=== PATIENT | female | born 1990 | race Caucasian/White ===

== ENCOUNTER 2022-10-14 18:29 | Emergency (ER) | payer BC ==
[2022-10-14 19:02] VITALS: TEMP 98
[2022-10-14] MEDS ORDERED: SODIUM CHLORIDE 0.9% 2,000 ML IV STA (21:13)
[2022-10-14] MEDS ORDERED: ACETAMINOPHEN IV (For NPO) 1,000 MG in EMPTY BAG 1 BAG IVPB STA (21:13)
[2022-10-14] MEDS ORDERED: CAFFEINE-SODIUM BENZOATE 300 MG in SODIUM CHLORIDE 0.9% 1,000 ML IVPB ONE (21:14)
[2022-10-14] MEDS ORDERED: METOCLOPRAMIDE 5 MG/ML 2 ML VIAL IVP STA (21:18)
[2022-10-14] MEDS ORDERED: diphenhydrAMINE 50 MG/ML 1 ML VIAL IVP STA (21:18)
--- NOTE | 2022-10-14 21:35 | ED ---
Headache HPI - General Chief Complaint: Headache Stated Complaint: Migraine, 5 Weeks preg Time Seen by Provider: 10/14/22 21:09 Source: patient, RN notes reviewed Mode of arrival: ambulatory Limitations: no limitations - History of Present Illness Initial Comments: This is a 32-year-old female who presents to the emergency department for a headache. Patient states that this started about a week ago. Describes this as being in the front of her head, behind the eyes, and in the neck. She is 5 weeks and . She has an upcoming appointment with [facility] LABORATORY SPECIALIST, but has not yet seen them. She did start to feel nauseous today. She has taken Tylenol with no relief in symptoms. Reports associated photophobia. Denies any history of headaches or migraines. Denies any fevers, chills, sore throat, cough, dyspnea, chest pain, palpitati ons, abdominal pain, vomiting, or diarrhea. MD Complaint: headache - Related Data Home Medications Medication Instructions Recorded Confirmed No Known Home Medications 08/26/13 08/26/13 Allergies Allergy/AdvReac Type Severity Reaction Status Date / Time No Known Allergies Allergy Verified 10/14/22 19:02 Review of Systems ROS Statement: Those systems with pertinent positive or pertinent negative responses have been documented in the HPI. ROS Other: All systems not noted in ROS Statement are negative. Past Medical History Past Medical History: COPD Additional Past Medical History / Comment(s): SWOLLEN TONSILS, CHRONIC SORE THROATS. HX OF BRONCHITIS. IUD. History of Any Multi-Drug Resistant Organisms: None Reported Past Surgical History: No Surgical Hx Reported Additional Past Anesthesia/Blood Transfusion Reaction / Comment(s): FIRST SURGERY Past Psychological History: No Psychological Hx Reported Smoking Status: Never smoker Past Alcohol Use History: Occasional Past Drug Use History: None Reported General Exam Limitations: no limitations General appearance: alert, in no apparent distress Head exam: Present: atraumatic, normocephalic, normal inspection Eye exam: Present: normal appearance, PERRL, EOMI. Absent: scleral icterus, conjunctival injection, periorbital swelling Respiratory exam: Present: normal lung sounds bilaterally. Absent: respiratory distress, wheezes, rales, rhonchi, stridor Cardiovascular Exam: Present: regular rate, normal rhythm, normal heart sounds. Absent: systolic murmur, diastolic murmur, rubs, gallop, clicks Neurological exam: Present: alert, oriented X3, CN II-XII intact Psychiatric exam: Present: normal affect, normal mood Skin exam: Present: warm, dry, intact, normal color. Absent: rash Course Vital Signs 10/14/22 10/14/22 19:00 23:28 Temperature 98 F Pulse Rate 92 88 Respiratory 18 20 Rate Blood Pressure 152/78 149/81 O2 Sat by Pulse 98 99 Oximetry Medical Decision Making - Medical Decision Making This is a 32-year-old female who presents to the emergency department for a headache. Was pt. sent in by a medical professional or institution? @ -No Did you speak to anyone other than the patient for history? @ -No Did you review nursing and triage notes? @ -Yes, and I agree, it is accurate with regards to the patient's symptoms. Were old charts reviewed? @ -No Differential Diagnosis? @ -Differential Headache: Migraine, tension, cluster, carbon monoxide, central venous thrombosis, pension karma temporal arteritis, acute closure glaucoma, intercranial hemorrhage, mastoiditis, sinusitis, head injury, this is not meant to be an all-inclusive list. EKG interpreted by me (3pts min.)? @ -Not obtained X-rays interpreted by me (1pt min.)? @ -Not obtained CT interpreted by me (1pt min.)? @ -Not obtained U/S interpreted by me (1pt. min.)? @ -Not obtained What testing was considered but not performed? (CT, X-rays, U/S, labs)? Why? @ -None What meds were considered but not given? Why? @ -None Did you discuss the management of the patient with other professionals? @ -No Did you reconcile home meds? @ -No Was smoking cessation discussed for >3mins.? @ -No Was critical care preformed (if so, how long)? @ -No Were there social determinants of health that impacted care today? How? (Homelessness, low income, unemployed, alcoholism, drug addiction, transport ation, low edu. Level, literacy, decrease access to med. care, senior living, rehab)? @ -No Was there de-escalation of care discussed even if they declined? (Discuss DNR or withdrawal of care, Hospice)? @ -No What co-morbidities impacted this encounter? (DM, HTN, Smoking, COPD, CAD, Cancer, CVA, Hep., AIDS, mental health diagnosis, sleep apnea, morbid obesity)? @ - Was patient admitted / discharged? @ -Discharged. Lab work obtained revealing mild leukocytosis and was otherwise nonactionable. Covid, influenza, and RSV testing were negative. Urinalysis negative for signs of infection. She did have mildly elevated blood pressure, however she did not have protein in her urine and did not meet criteria for preeclampsia. Additionally, the patient was in a lot of pain and becoming agitated with one of her nurses for not being very efficient, all likely con tributing to her blood pressure. Advised that she will need to have close follow-up with this with her MEDICAL LABORATORY SPECIALIST. Her headache was well controlled with IV fluids, Ofirmev, Benadryl, and caffeine, and the patient felt stable for discharge home. Advised that she can continue with a combination of Tylenol, Benadryl, and caffeine at home for further management of headaches. She is instructed to avoid consuming more than 300 mg of caffeine daily in . She is also reminded to avoid taking any [id number]-syc-[id number] anti-inflammatories such as ibuprofen in . Undiagnosed new problem with uncertain prognosis? @ -None Drug Therapy requiring intensive monitoring for toxicity (Heparin, Nitro, Insulin, Cardizem)? @ -None Were any procedures done? @ -None Diagnosis/symptom? @ -Headache Acute, or Chronic, or Acute on Chronic? @ -Acute Uncomplicated (without systemic symptoms) or Complicated (systemic symptoms)? @ -Uncomplicated Side effects of treatment? @ -None Exacerbation, Progression, or Severe Exacerbation] @ -Not applicable Poses a threat to life or bodily function? @ -No Return precautions reviewed in depth, the patient is instructed to return to the emergency department with any new, worsening, or concerning symptoms. Patient verbalized understanding. This case was discussed in detail with the attending ED physician, Dr. Patton. Presentation, findings, and treatment plan discussed in detail as well. - Lab Data Result diagrams: 10/14/22 21:42 10/14/22 21:42 Lab Results 10/14/22 10/14/22 10/14/22 Range/Units 00:00 21:42 21:42 WBC 11.8 H (3.8-10.6) k/uL RBC 4.75 (3.80-5.40) m/uL Hgb 14.8 (11.4-16.0) gm/dL Hct 43.6 (34.0-46.0) % MCV 91.6 (80.0-100.0) fL MCH 31.1 (25.0-35.0) pg MCHC 33.9 (31.0-37.0) g/dL RDW 12.8 (11.5-15.5) % Plt Count 232 (150-450) k/uL MPV 8.4 Neutrophils % 76 % Lymphocytes % 16 % Monocytes % 6 % Eosinophils % 1 % Basophils % 0 % Neutrophils # 9.0 H (1.3-7.7) k/uL Lymphocytes # 1.9 (1.0-4.8) k/uL Monocytes # 0.7 (0-1.0) k/uL Eosinophils # 0.1 (0-0.7) k/uL Basophils # 0.0 (0-0.2) k/uL Sodium 136 L (137-145) mmol/L Potassium 3.5 (3.5-5.1) mmol/L Chloride 106 (98-107) mmol/L Carbon Dioxide 21 L (22-30) mmol/L Anion Gap 9 mmol/L BUN 8 (7-17) mg/dL Creatinine 0.62 (0.52-1.04) mg/dL Est GFR (CKD-EPI)AfAm >90 (>60 ml/min/1.73 sqM) Est GFR (CKD-EPI)NonAf >90 (>60 ml/min/1.73 sqM) Glucose 105 H (74-99) mg/dL Calcium 9.0 (8.4-10.2) mg/dL Total Bilirubin 1.0 (0.2-1.3) mg/dL AST 24 (14-36) U/L ALT 33 (4-34) U/L Alkaline Phosphatase 44 (38-126) U/L Total Protein 7.0 (6.3-8.2) g/dL Albumin 4.2 (3.5-5.0) g/dL HCG, Quant 4823.1 mIU/mL Urine Color Colorless Urine Appearance Clear (Clear) Urine pH 5.5 (5.0-8.0) Ur Specific [place] 1.004 (1.001-1.035) Urine Protein Negative (Negative) Urine Glucose (UA) Negative (Negative) Urine Ketones Negative (Negative) Urine Blood Negative (Negative) Urine Nitrite Negative (Negative) Urine Bilirubin Negative (Negative) Urine Urobilinogen 0.2 (<2.0) mg/dL Ur Leukocyte Esterase Negative (Negative) Influenza Type A (PCR) (Not Detectd) Influenza Type B (PCR) (Not Detectd) RSV (PCR) (Not Detectd) SARS-CoV-2 (PCR) (Not Detectd) 10/14/22 Range/Units 21:42 WBC (3.8-10.6) k/uL RBC (3.80-5.40) m/uL Hgb (11.4-16.0) gm/dL Hct (34.0-46.0) % MCV (80.0-100.0) fL MCH (25.0-35.0) pg MCHC (31.0-37.0) g/dL RDW (11.5-15.5) % Plt Count (150-450) k/uL MPV Neutrophils % % Lymphocytes % % Monocytes % % Eosinophils % % Basophils % % Neutrophils # (1.3-7.7) k/uL Lymphocytes # (1.0-4.8) k/uL Monocytes # (0-1.0) k/uL Eosinophils # (0-0.7) k/uL Basophils # (0-0.2) k/uL Sodium (137-145) mmol/L Potassium (3.5-5.1) mmol/L Chloride (98-107) mmol/L Carbon Dioxide (22-30) mmol/L Anion Gap mmol/L BUN (7-17) mg/dL Creatinine (0.52-1.04) mg/dL Est GFR (CKD-EPI)AfAm (>60 ml/min/1.73 sqM) Est GFR (CKD-EPI)NonAf (>60 ml/min/1.73 sqM) Glucose (74-99) mg/dL Calcium (8.4-10.2) mg/dL Total Bilirubin (0.2-1.3) mg/dL AST (14-36) U/L ALT (4-34) U/L Alkaline Phosphatase (38-126) U/L Total Protein (6.3-8.2) g/dL Albumin (3.5-5.0) g/dL HCG, Quant mIU/mL Urine Color Urine Appearance (Clear) Urine pH (5.0-8.0) Ur Specific [place] (1.001-1.035) Urine Protein (Negative) Urine Glucose (UA) (Negative) Urine Ketones (Negative) Urine Blood (Negative) Urine Nitrite (Negative) Urine Bilirubin (Negative) Urine Urobilinogen (<2.0) mg/dL Ur Leukocyte Esterase (Negative) Influenza Type A (PCR) Not Detected (Not Detectd) Influenza Type B (PCR) Not Detected (Not Detectd) RSV (PCR) Not Detected (Not Detectd) SARS-CoV-2 (PCR) Not Detected (Not Detectd) Disposition Clinical Impression: Headache, Disposition: HOME SELF-CARE Instructions (If sedation given, give patient instructions): Acute Headache (ED) Additional Instructions: Return to the emergency department with any new, worsening, or concerning symptoms. If the headache returns, you can take [id number] Tylenol with caffeine and Benadryl. Limit your caffeine intake to 300 mg in . Make sure to avoid anti-inflammatories such as ibuprofen. Follow up with your [facility] LABOR[facility]ORY SPECIALIST as scheduled. Follow up with your primary care provider in 1-2 days. Is patient prescribed a controlled substance at d/c from ED?: No Referrals: None,Stated [REFERRING] - 1-2 days
[2022-10-14 22:35] LABS: ALT 33 U/L (4-34); AST 24 U/L (14-36); African American GFR (CKD) >90 (>60 ml/min/1.73 sqM); Albumin 4.2 g/dL (3.5-5.0); Alkaline Phosphatase 44 U/L (38-126); Anion Gap 9 mmol/L; Blood Urea Nitrogen 8 mg/dL (7-17); Carbon Dioxide 21 mmol/L (22-30); Chloride 106 mmol/L (98-107); Glucose 105 mg/dL (74-99); Non-African American GFR(CKD) >90 (>60 ml/min/1.73 sqM); Potassium 3.5 mmol/L (3.5-5.1); Sodium 136 mmol/L (137-145)
[2022-10-14 22:43] LABS: Basophils % (A) 0 %; Eosinophils # (A) 0.1 k/uL (0-0.7); Eosinophils % (A) 1 %; HCT 43.6 % (34.0-46.0); HGB 14.8 gm/dL (11.4-16.0); Lymphocytes # (A) 1.9 k/uL (1.0-4.8); Lymphocytes % (A) 16 %; MCH 31.1 pg (25.0-35.0); MCHC 33.9 g/dL (31.0-37.0); MCV 91.6 fL (80.0-100.0); Mean Platelet Volume 8.4; Monocytes # (A) 0.7 k/uL (0-1.0); Monocytes % (A) 6 %; Neutrophils % (A) 76 %; Platelet Count 232 k/uL (150-450); RBC 4.75 m/uL (3.80-5.40); RDW 12.8 % (11.5-15.5); WBC 11.8 k/uL (3.8-10.6)
[2022-10-14 22:51] LABS: HCG,Quantitative Serum 4823.1 mIU/mL
[2022-10-14 23:29] VITALS: BP 149/81; PULSE 88; RESP 20
[2022-10-15] MEDS ORDERED: ONDANSETRON 4 MG ODT STARTER PACK 2 TAB BTL PO STA (00:06)
[2022-10-15 00:59] LABS: Appearance,Urine Clear (Clear); Bilirubin,Urine Negative (Negative); Blood,Urine Negative (Negative); Color,Urine Colorless; Glucose,Urine (UA) Negative (Negative); Ketones,Urine Negative (Negative); Leukocyte Esterase,Urine Negative (Negative); Nitrite,Urine Negative (Negative); PH, Urine 5.5 (5.0-8.0); Protein,Urine Negative (Negative); Specific Gravity,Urine 1.004 (1.001-1.035); Urobilinogen,Urine 0.2 mg/dL (<2.0)
== END 2022-10-15 00:48 | disposition home or self-care (01) ==
LOC: EC 18:29
DX: O99.351 Diseases of the nervous system complicating pregnancy, first trimester (principal); R51.9 Headache, unspecified; O99.511 Diseases of the respiratory system complicating pregnancy, first trimester; J44.9 Chronic obstructive pulmonary disease, unspecified; Z20.822 Contact with and (suspected) exposure to COVID-19
CPT/HCPCS: 80053; 85025; 84702; 87636; 99284; 96365; 96367; 96375 ×2; 96361; J1200; J2765; J0131; 36415; 81003

== ENCOUNTER 2024-05-19 10:57 | Outpatient (CLI) | payer BC ==
[2024-05-19 12:40] LABS: Appearance,Urine Cloudy (Clear); Bacteria,Urine Many /hpf; Bilirubin,Urine Negative (Negative); Blood,Urine Negative (Negative); Color,Urine Light Yellow; Glucose,Urine (UA) Negative (Negative); Ketones,Urine 3+ (Negative); Leukocyte Esterase,Urine Negative (Negative); Mucus,Urine Occasional /hpf; Nitrite,Urine Negative (Negative); Protein,Urine Trace (Negative); RBC,Urine 1 /hpf (0-5); Squamous Epithelial Cell,Urine 3 /hpf (0-4); Urobilinogen,Urine <2.0 mg/dL (<2.0); WBC,Urine 7 /hpf (0-5)
[2024-05-19 12:41] LABS: Basophils % (A) 0 %; Eosinophils # (A) 0.1 k/uL (0-0.7); Eosinophils % (A) 1 %; HCT 40.7 % (34.0-46.0); HGB 12.9 gm/dL (11.4-16.0); Lymphocytes # (A) 1.4 k/uL (1.0-4.8); Lymphocytes % (A) 17 %; MCHC 31.6 g/dL (31.0-37.0); MCV 95.1 fL (80.0-100.0); Mean Platelet Volume 9.9; Monocytes # (A) 0.5 k/uL (0-1.0); Monocytes % (A) 7 %; Neutrophils # (A) 6.1 k/uL (1.3-7.7); Neutrophils % (A) 74 %; Platelet Count 170 k/uL (150-450); RBC 4.28 m/uL (3.80-5.40); RDW 13.2 % (11.5-15.5); WBC 8.3 k/uL (3.8-10.6)
[2024-05-19 13:01] LABS: ALT 16 U/L (4-34); AST 19 U/L (14-36); African American GFR (CKD) >90 (>60 ml/min/1.73 sqM); Blood Urea Nitrogen 12 mg/dL (7-17); LDH 194 U/L (120-246); Non-African American GFR(CKD) >90 (>60 ml/min/1.73 sqM); Uric Acid 4.2 mg/dL (3.7-7.4)
[2024-05-19 13:19] VITALS: BP 170/91; PULSE 89; RESP 18; TEMP 97.6
[2024-05-19 16:35] LABS: Creatinine,Urine Random 133.1 mg/dL; Protein/Creatinine Ratio,Urine 0.12
== END 2024-05-19 13:19 | disposition home or self-care (01) ==
LOC: FBPOP 10:57
PROVIDERS: ATTEND Obstetrics & Gynecology Obstetrics
DX: O24.419 Gestational diabetes mellitus in pregnancy, unspecified control (principal)
CPT/HCPCS: 59025; 81001; 82565; 82570; 83615; 84156; 84450; 84460; 84520; 84550; 85025; 99215

== ENCOUNTER 2024-06-03 10:23 | Outpatient (CLI) | payer BC ==
[2024-06-03 11:00] LABS: Basophils % (A) 0 %; Eosinophils # (A) 0.1 k/uL (0-0.7); Eosinophils % (A) 1 %; HCT 42.8 % (34.0-46.0); HGB 13.5 gm/dL (11.4-16.0); Lymphocytes # (A) 1.3 k/uL (1.0-4.8); Lymphocytes % (A) 16 %; MCH 30.2 pg (25.0-35.0); MCHC 31.6 g/dL (31.0-37.0); MCV 95.7 fL (80.0-100.0); Mean Platelet Volume 9.7; Monocytes # (A) 0.4 k/uL (0-1.0); Monocytes % (A) 5 %; Neutrophils # (A) 6.1 k/uL (1.3-7.7); Neutrophils % (A) 75 %; Platelet Count 188 k/uL (150-450); RBC 4.48 m/uL (3.80-5.40); RDW 13.5 % (11.5-15.5); WBC 8.1 k/uL (3.8-10.6)
[2024-06-03 11:07] LABS: Appearance,Urine Cloudy (Clear); Bacteria,Urine Few /hpf; Bilirubin,Urine Negative (Negative); Blood,Urine Negative (Negative); Color,Urine Colorless; Glucose,Urine (UA) Negative (Negative); Ketones,Urine Negative (Negative); Leukocyte Esterase,Urine Negative (Negative); Mucus,Urine Rare /hpf; Nitrite,Urine Negative (Negative); PH, Urine 6.5 (5.0-8.0); Protein,Urine Negative (Negative); Specific Gravity,Urine 1.014 (1.001-1.035); Squamous Epithelial Cell,Urine 3 /hpf (0-4); Urobilinogen,Urine <2.0 mg/dL (<2.0); WBC,Urine 3 /hpf (0-5)
[2024-06-03 11:20] LABS: Creatinine,Urine Random 63.8 mg/dL
[2024-06-03 12:24] LABS: Creatinine,Urine Random 63.8 mg/dL; Protein/Creatinine Ratio,Urine 0.188
[2024-06-03 12:59] VITALS: BP 142/93; PULSE 90; RESP 17; TEMP 96.6
== END 2024-06-03 12:53 | disposition home or self-care (01) ==
LOC: FBPOP 10:23
PROVIDERS: ATTEND Obstetrics & Gynecology Obstetrics
DX: O24.419 Gestational diabetes mellitus in pregnancy, unspecified control (principal); Z3A.00 Weeks of gestation of pregnancy not specified
CPT/HCPCS: 36415; 59025; 81001; 82570; 84156; 84450; 84460; 84550; 85025

== ENCOUNTER 2024-06-19 16:14 | Outpatient (CLI) | payer BC ==
[2024-06-19 17:16] LABS: Appearance,Urine Cloudy (Clear); Bacteria,Urine Many /hpf; Bilirubin,Urine Negative (Negative); Blood,Urine Negative (Negative); Color,Urine Colorless; Glucose,Urine (UA) Negative (Negative); Ketones,Urine Negative (Negative); Leukocyte Esterase,Urine Negative (Negative); Mucus,Urine Occasional /hpf; Nitrite,Urine Negative (Negative); Protein,Urine Trace (Negative); RBC,Urine 5 /hpf (0-5); Specific Gravity,Urine 1.018 (1.001-1.035); Squamous Epithelial Cell,Urine 4 /hpf (0-4); Urobilinogen,Urine <2.0 mg/dL (<2.0); WBC,Urine 21 /hpf (0-5)
[2024-06-19 17:24] LABS: Basophils % (A) 0 %; Eosinophils # (A) 0.3 k/uL (0-0.7); Eosinophils % (A) 3 %; HCT 42.2 % (34.0-46.0); HGB 13.6 gm/dL (11.4-16.0); Lymphocytes # (A) 1.4 k/uL (1.0-4.8); Lymphocytes % (A) 14 %; MCHC 32.1 g/dL (31.0-37.0); MCV 93.5 fL (80.0-100.0); Mean Platelet Volume 9.4; Monocytes # (A) 0.6 k/uL (0-1.0); Monocytes % (A) 6 %; Neutrophils # (A) 7.3 k/uL (1.3-7.7); Neutrophils % (A) 75 %; Platelet Count 186 k/uL (150-450); RBC 4.52 m/uL (3.80-5.40); RDW 13.2 % (11.5-15.5); WBC 9.7 k/uL (3.8-10.6)
[2024-06-19 18:18] LABS: ALT 16 U/L (4-34); AST 22 U/L (14-36); African American GFR (CKD) >90 (>60 ml/min/1.73 sqM); Blood Urea Nitrogen 18 mg/dL (7-17); Non-African American GFR(CKD) >90 (>60 ml/min/1.73 sqM); Uric Acid 4.4 mg/dL (3.7-7.4)
[2024-06-19] MEDS: ACETAMINOPHEN TAB 500 MG TAB PO STA (18:45)
[2024-06-19] MEDS: LABETALOL 100 MG TAB PO ONE (18:46)
[2024-06-19 20:39] VITALS: BP 171/91; PULSE 103; RESP 16; TEMP 97
== END 2024-06-19 20:00 ==
LOC: FBPOP 16:14
PROVIDERS: ATTEND Obstetrics & Gynecology Obstetrics
DX: O24.419 Gestational diabetes mellitus in pregnancy, unspecified control (principal); Z3A.00 Weeks of gestation of pregnancy not specified
CPT/HCPCS: 59025; 81001; 82565; 82570; 84156; 84450; 84460; 84520; 84550; 85025

== ENCOUNTER 2024-06-25 15:44 | Inpatient (IN) | payer BC ==
[2024-06-25] MEDS ORDERED: miSOPROStoL 200 MCG TAB PO PRN (16:18)
[2024-06-25] MEDS ORDERED: METHYLERGONOVINE 0.2 MG/ML 1 ML AMP IM PRN (16:18)
[2024-06-25] MEDS ORDERED: miSOPROStoL 200 MCG TAB RECTAL PRN (16:18)
[2024-06-25] MEDS ORDERED: OXYTOCIN 10 UNIT/ML 1 ML VIAL IM PRN (16:18)
[2024-06-25] MEDS ORDERED: LIDOCAINE 0.5% (PF) 5 MG/ML (50 ML SDV) SQ PRN (16:18)
[2024-06-25] MEDS ORDERED: CARBOPROST TROMETHAMINE 250 MCG/ML 1 ML AMP IM PRN (16:18)
[2024-06-25] MEDS ORDERED: TRANEXAMIC 1,000 MG/100ML-NACL 1,000 MG in EMPTY BAG 1 BAG IV PRN (16:18)
[2024-06-25] MEDS ORDERED: TERBUTALINE 1 MG/ML VIAL SQ PRN (16:18)
[2024-06-25] MEDS ORDERED: NALBUPHINE 10 MG/ML (10 ML MDV) IV PRN (16:20)
[2024-06-25] MEDS: PRENATAL VIT-IRON-FOLIC ACID 1 EACH TABLET PO ONE (16:43)
[2024-06-25] MEDS: LACTATED RINGERS 1,000 ML IV SCH (16:44)
[2024-06-25 16:47] LABS: Basophils # (A) 0.02 10*3/uL (0.00-0.10); Basophils % (A) 0.2 %; Eosinophils # (A) 0.26 10*3/uL (0.04-0.35); Eosinophils % (A) 3.2 %; HCT 40.2 % (37.2-46.3); HGB 13.8 g/dL (12.0-15.0); Lymphocytes # (A) 1.23 10*3/uL (0.90-5.00); Lymphocytes % (A) 14.9 %; MCH 31.7 pg (27.0-32.0); MCHC 34.3 g/dL (32.0-37.0); MCV 92.4 fL (80.0-97.0); Mean Platelet Volume 11.4 fL (9.5-12.2); Monocytes # (A) 0.62 10*3/uL (0.20-1.00); Monocytes % (A) 7.5 %; Neutrophils # (A) 6.07 10*3/uL (1.80-7.70); Neutrophils % (A) 73.7 %; Platelet Count 201 10*3/uL (140-440); RBC 4.35 10*6/uL (4.10-5.20); RDW 12.8 % (11.5-14.5); WBC 8.24 10*3/uL (4.50-10.00)
[2024-06-25] MEDS: DINOPROSTONE 10 MG INSERT.ER VAGINAL ONE (16:53)
[2024-06-25] MEDS: ALBUTEROL NEBULIZED 2.5 MG/3 ML INHALATION SCH (18:06)
[2024-06-25] MEDS: LABETALOL 200 MG TAB PO SCH (21:12)
[2024-06-25 21:18] LABS: Glucose,Whole Blood 118 mg/dL (70-110)
[2024-06-26] MEDS: OXYTOCIN 30 UNITS/500 ML NS 30 UNIT in SALINE 1 500ML.BAG IV SCH (06:20)
[2024-06-26 06:37] LABS: Glucose,Whole Blood 97 mg/dL (70-110)
[2024-06-26] MEDS: AZITHROMYCIN 500 MG TAB PO SCH (10:00)
[2024-06-26] MEDS ORDERED: fentaNYL (PF) 50 MCG/ML 5 ML AMP ONE (13:15)
[2024-06-26] MEDS ORDERED: ROPIVACAINE 5 MG/ML 30 ML VIAL ONE (13:15)
[2024-06-26] MEDS ORDERED: SODIUM CHLORIDE 0.9% 250 ML BAG ONE (13:15)
[2024-06-26] MEDS ORDERED: ZOLPIDEM 5 MG TAB PO PRN (22:38)
[2024-06-26] MEDS ORDERED: LANOLIN CREAM 1 GM TUBE TOPICAL PRN (22:38)
[2024-06-26] MEDS ORDERED: SIMETHICONE 80 MG CHEWABLE PO PRN (22:38)
[2024-06-26] MEDS ORDERED: HYDROCORTISONE 2.5% RECTAL CREAM 30 GM TUBE RECTAL PRN (22:38)
[2024-06-26] MEDS ORDERED: diphenhydrAMINE 50 MG CAP PO PRN (22:38)
[2024-06-26] MEDS ORDERED: BENZOCAINE/MENTHOL SPRAY 1 GM/SPRAY AEROSOL TOPICAL PRN (22:38)
[2024-06-26] MEDS ORDERED: diphenhydrAMINE 50 MG/ML 1 ML VIAL IVP PRN ×2 (22:38)
[2024-06-26] MEDS ORDERED: diphenhydrAMINE 25 MG CAP PO PRN (22:38)
--- NOTE | 2024-06-26 22:42 | P.PROBDLV ---
Vaginal Delivery Note - . Vaginal Delivery Note: Date of service 06/26/2024 Findings viable female delivered at 2217, weight of 6 pounds 2.6 ounces 33-year-old 3 para 0-0-2-0 admitted last evening for medical induction of labor secondary to preeclampsia without severe features, gestational diabetes A2 on insulin. Patient was admitted to labor and delivery Cervidil was placed without difficulty. Patient made minimal change through the evening and in the morning was noted to be 1 cm rupture of membranes was performed and clear fluid was obtained. Pitocin was begun per hospital protocol. Patient made slow progress through the day eventually becoming uncomfortable and requesting epidural. Epidural was placed without difficulty by the anesthesia department. Patient made progress toward complete dilation once completely dilated patient began pushing. With excellent maternal effort patient had a normal spontaneous vaginal delivery of a viable female at 2217, weight of 6 pounds 2.6 ounces, Apgars of 8 and 9 at 1 and 5 minutes respectively. After 2-minute delay the umbilical cord was doubly clamped and cut. Placenta was delivered spontaneously intact with a three-vessel cord being noted. Spontaneous cry was noted at . On inspection of the patient's vaginal vault a second-degree midline laceration was appreciated. This was repaired in the usual fashion with 3-0 Rapide. Uterus was noted to be firm and below the umbilicus. 1 small gush of bleeding was appreciated, resolved with fundal massage. All counts were to be correct x 2 at the end of the delivery. Patient and tolerated delivery well Blood loss 200 cc
[2024-06-26] MEDS ORDERED: OXYTOCIN 30 UNITS/500 ML NS 30 UNIT in SALINE 1 500ML.BAG IV SCH (22:45)
--- NOTE | 2024-06-26 22:46 | P.HPOB ---
History of Present Illness H&P Date: 06/25/24 Chief Complaint: IUP at 36 and 6/7, preeclampsia without severe features This is a 33-year-old 1 para 0 at 36 and 6/7 weeks that presents to labor and delivery for induction of labor. Patient has been diagnosed with preeclampsia without severe features, preeclampsia labs have been negative. Blood pressures 140s over 90s on 200 mg of labetalol. Patient has had a headache off and on typically resolved with Tylenol. In addition patient has a diagnosis of gestational diabetes and has been on 14 units of insulin, managed with Dr. Mendes. There was have been moderately well-controlled Patient notes good movement. Denies vaginal bleeding or loss of fluid. On prior blood work this patient has a blood type of A+, rubella status immune, hepatitis B surface antigen negative, HIV negative, RPR is nonreactive, hepatitis C negative, group beta strep negative Review of Systems Constitutional: Denies chills, Denies fatigue, Denies fever Ears, nose, mouth and throat: Denies headache Cardiovascular: Reports leg edema Respiratory: Denies dyspnea Gastrointestinal: Denies constipation, Denies diarrhea, Denies nausea, Denies vomiting Genitourinary: Reports Past Medical History Past Medical History: COPD Additional Past Medical History / Comment(s): SWOLLEN TONSILS, CHRONIC SORE THROATS. HX OF BRONCHITIS. IUD. History of Any Multi-Drug Resistant Organisms: None Reported Past Surgical History: No Surgical Hx Reported Additional Past Anesthesia/Blood Transfusion Reaction / Comment(s): FIRST SURGERY Smoking Status: Never smoker Medications and Allergies Home Medications Medication Instructions Recorded Confirmed Type metFORMIN HCL 500 mg PO BID 05/19/24 06/25/24 History Aspirin [Adult Low Dose Aspirin EC] 1 tab PO ONCE 06/03/24 06/25/24 History Vit No.179/Iron/Folic 1 tab PO ONCE 06/03/24 06/25/24 History [ Tablet] Labetalol [Trandate] 200 mg PO BID 06/19/24 06/25/24 History Albuterol Inhaler [Ventolin Hfa 2 puff INHALATION QID 06/25/24 06/25/24 History Inhaler] Azithromycin [Zithromax Z Pack] 1 tab PO DAILY 06/25/24 06/25/24 History Insulin Degludec [Tresiba 14 units SQ HS 06/25/24 06/25/24 History Flextouch U-100 Pen] Allergies Allergy/AdvReac Type Severity Reaction Status Date / Time No Known Allergies Allergy Verified 06/25/24 16:03 Exam Osteopathic Statement: *. No significant issues noted on an osteopathic structural exam other than those noted in the History and Physical/Consult. Intake and Output 06/25/24 06/25/24 06/25/24 06:59 14:59 22:59 Other: Weight 133.356 kg Targeted physical exam is performed this date in general is well-nourished well- developed female in no acute distress, breathing is nonlabored, abdomen is gravid, cervical exam is heart tones are noted to be category 1 Results Result Diagrams: 06/25/24 16:15 Assessment and Plan (1) 36 to 37 weeks gestation of Current Visit: Yes Status: Acute Code(s): QBU2617 - SNOMED Code(s): 620679350 (2) Preeclampsia Current Visit: Yes Status: Acute Code(s): O14.90 - UNSPECIFIED PRE- ECLAMPSIA, UNSPECIFIED TRIMESTER SNOMED Code(s): 457491939 Plan: 33-year-old at 36 and 6 that presents for Cervidil induction of labor. Liquids as tolerated during labor Continuous monitoring Options for analgesia discussed Nubain, nitrous, epidural.
[2024-06-27] MEDS: ACETAMINOPHEN TAB 500 MG TAB PO SCH (06:23)
[2024-06-27] MEDS: IBUPROFEN 800 MG TAB PO SCH (06:23)
[2024-06-27] MEDS: SENNOSIDES-DOCUSATE SODIUM 1 EACH TAB PO SCH (08:02)
--- NOTE | 2024-06-27 08:21 | P.PNOBGVD ---
Subjective - Subjective Principal diagnosis: day #1 Interval history: Patient is doing well overall . She is ambulating and voiding without difficulty. She states she feels well. Lochia is noted to be moderate. She is tolerating a regular diet without nausea or vomiting. Patient reports: Reports appetite normal, Reports voiding normally, Reports pain well controlled, Reports ambulating normally [place]: doing well Objective - Latest Vital Signs Latest vital signs: Vital Signs Temp Pulse Pulse Resp BP Pulse Ox 06/27/24 05:30 98.3 F 76 16 142/86 97 06/27/24 00:17 95.5 F L 105 H 16 119/55 06/27/24 00:13 95.6 F L 80 16 126/63 06/26/24 23:59 98 18 122/58 06/26/24 23:44 96.5 F L 93 18 116/56 06/26/24 23:28 97.5 F L 101 H 18 132/63 06/26/24 23:14 102 H 18 128/57 06/26/24 22:59 113 H 16 144/57 06/26/24 22:44 98.3 F 104 H 16 123/63 06/26/24 22:30 112 H 16 126/66 06/26/24 18:47 80 06/26/24 18:36 72 06/26/24 15:27 70 06/26/24 15:17 80 06/26/24 11:26 77 06/26/24 11:18 84 Intake and Output 06/26/24 06/27/24 06/27/24 22:59 06:59 14:59 Intake Total 226.833 Output Total 300 160 Balance -73.167 -160 Intake: Intake, IV Titration 226.833 Amount Oxytocin 30 Units/500 ml 226.833 Ns 30 unit In Saline 1 500ml.bag @ Per Protocol IV .Q0M [facility] Rx#:[id number] Output: Urine 100 Output, Estimated Blood 200 Loss Amount Output, Quantitative 160 Blood Loss Other: # Voids 1 - Exam Extremities: Present: normal, edema Abdomen: Present: normal appearance, soft Uterus: Present: normal, firm Assessment and Plan (1) 36 to 37 weeks gestation of Current Visit: Yes Status: Acute Code(s): TWS0352 - SNOMED Code(s): 067296767 (2) Preeclampsia Current Visit: Yes Status: Acute Code(s): O14.90 - UNSPECIFIED PRE- ECLAMPSIA, UNSPECIFIED TRIMESTER SNOMED Code(s): 167436463 (3) Status post normal vaginal delivery Current Visit: Yes Status: Acute Code(s): [id number] - SNOMED Code(s): 083150526 (4) Obstetrical laceration, first degree Current Visit: Yes Status: Acute Code(s): O70.0 - FIRST DEGREE PERINEAL LACERATION DURING DELIVERY SNOMED Code(s): 12372706 Plan: Patient is doing well . Continue close observation of blood pressures. Anticipate discharge home tomorrow
[2024-06-28 08:54] VITALS: RESP 16; TEMP 98.1
--- NOTE | 2024-06-28 09:17 | P.DS ---
Providers Date of admission: 06/25/24 15:44 Expected date of discharge: 06/28/24 Attending physician: Hanna Olivera Primary care physician: Stated None - Discharge Diagnosis(es) (1) 36 to 37 weeks gestation of Current Visit: Yes Status: Acute (2) Preeclampsia Current Visit: Yes Status: Acute (3) Status post normal vaginal delivery Current Visit: Yes Status: Acute (4) Obstetrical laceration, first degree Current Visit: Yes Status: Acute Hospital Course: This is a 33-year-old 3 now para 1-0-2-1 that was admitted on 06/25 for medical induction of labor secondary to preeclampsia without severe features, gestational diabetes A2 on insulin. For full details in this patient please see the dictated history and physical. Patient was admitted and had Cervidil placed the evening of 06/25. Patient made minimal progress through the evening and in the morning was begun on Pitocin per hospital protocol. Amniotomy was performed and clear fluid was obtained. Patient made slow progress toward complete dilation. Once completely dilated patient began pushing and had a normal spontaneous vaginal delivery of a viable female infant at 2217, weight of 6 pounds 2.6 ounces. Patient did sustain a second degree vaginal lacerations at the time of delivery. Repair was completed with 3-0 Rapide in the usual fashion. Patient has done well post . Blood pressures have been good . She did have 1 elevated 140s over 80s. Patient states she feels well. She denies concerns this morning. Lochia is noted to be minimal to moderate. She is pumping and breast-feeding. Patient Condition at Discharge: Good Plan - Discharge Summary New Discharge Prescriptions: No Action metFORMIN HCL 500 mg PO BID Vit No.179/Iron/Folic [ Tablet] 1 tab PO ONCE Albuterol Inhaler [Ventolin Hfa Inhaler] 2 puff INHALATION QID Aspirin [Adult Low Dose Aspirin EC] 1 tab PO ONCE Labetalol [Trandate] 200 mg PO BID Insulin Degludec [Tresiba Flextouch U-100 Pen] 14 units SQ HS Azithromycin [Zithromax Z Pack] 1 tab PO DAILY Discharge Medication List metFORMIN HCL 500 mg PO BID 05/19/24 [History] Aspirin [Adult Low Dose Aspirin EC] 1 tab PO ONCE 06/03/24 [History] Vit No.179/Iron/Folic [ Tablet] 1 tab PO ONCE 06/03/24 [History] Labetalol [Trandate] 200 mg PO BID 06/19/24 [History] Albuterol Inhaler [Ventolin Hfa Inhaler] 2 puff INHALATION QID 06/25/24 [History] Azithromycin [Zithromax Z Pack] 1 tab PO DAILY 06/25/24 [History] Insulin Degludec [Tresiba Flextouch U-100 Pen] 14 units SQ HS 06/25/24 [History] Follow up Appointment(s)/Referral(s): Hanna Olivera DO [Doctor of Osteopathic Medicine] - 08/06/24 11:30 am Patient Instructions/Handouts: Vaginal Delivery (GEN), Vaginal Delivery (DC) Activity/Diet/Wound Care/Special Instructions: No tub baths or intercourse until 6 weeks . [id number] ibuprofen 600 mg or 3 tablets every 6 hours as needed for pain. Patient is to call the office and make blood pressure check appointment for next week. Discharge Disposition: HOME SELF-CARE
[2024-06-28 18:19] VITALS: BP 140/92; PULSE 76
== END 2024-06-28 18:15 | disposition home or self-care (01) | DRG 807 ==
LOC: 4FBP 15:44
PROVIDERS: ADMIT Obstetrics & Gynecology Obstetrics; ATTEND Obstetrics & Gynecology Obstetrics
PROC: 10907ZC Drainage of Amniotic Fluid, Therapeutic from Products of Conception, Via Natural or Artificial Opening (ICD-10-PCS; principal; 2024-06-25)
PROC: 3E0P7VZ Introduction of Hormone into Female Reproductive, Via Natural or Artificial Opening (ICD-10-PCS; principal; 2024-06-25)
PROC: 3E033VJ Introduction of Other Hormone into Peripheral Vein, Percutaneous Approach (ICD-10-PCS; principal; 2024-06-25)
PROC: 0KQM0ZZ Repair Perineum Muscle, Open Approach (ICD-10-PCS; principal; 2024-06-25)
PROC: 10E0XZZ Delivery of Products of Conception, External Approach (ICD-10-PCS; principal; 2024-06-25)
DX: O14.04 Mild to moderate pre-eclampsia, complicating childbirth (principal); Z37.0 Single live birth; O24.424 Gestational diabetes mellitus in childbirth, insulin controlled; O70.1 Second degree perineal laceration during delivery; Z3A.36 36 weeks gestation of pregnancy; Z28.310 Unvaccinated for COVID-19; Z28.21 Immunization not carried out because of patient refusal; Z79.82 Long term (current) use of aspirin; Z79.899 Other long term (current) drug therapy; Z79.2 Long term (current) use of antibiotics
CPT/HCPCS: 85025; 86850; 86900; 86901; 94640